=== PATIENT | female | born 1950 | race Caucasian/White ===

== ENCOUNTER 2016-04-16 22:02 | Inpatient (IN) | payer OTHER ==
[~2016-04-16] VITALS: Ht 165.1 cm; Wt 91.4 kg
--- NOTE | ~2016-04-16 | HP ---
ADMIT: 04/17/2016 RM/LOC: 310 [facility] MR#: [id number] [facility]#: [id number] [address] [address] GEORGE CHAUDHARY [address] [place] [id number] History and Physical SEX: F AGE: 65 : 1950 DATE OF SERVICE: CHIEF COMPLAINT: "I felt like I was going to pass out." HISTORY OF PRESENT ILLNESS: George is a very pleasant, 65-year-old female, normally follows with Viktoria Anglin in our clinic, history of coronary artery disease and then recently diagnosed with stage IV colon cancer status post laparoscopic right hemicolectomy on March 04, 2016, presented to the Emergency Department with the above complaints. The patient states that she was actually doing quite well in her normal state of health yesterday when acutely at about 7:30 last night. She had acute onset of feeling like she needed to go to the bathroom, along with feeling like she was going to pass out and extreme shortness of breath. She told her and they went to the Emergency Department for further evaluation. Upon evaluation there, the patient's workup revealed bilateral submassive PEs. She was started on oxygen, heparin drip, and we were asked to admit for further workup and management. She did have an elevated troponin during the workup as well. The patient seen this morning. She is doing quite well. Denies any significant chest pains or breathlessness. She denies any swelling in her legs. She noted she has had chemo x1 for her colon cancer and was due to have repeat chemo on Tuesday. She follows with Dr. Quinones for this. She denies any melenic stools. No other major complaints at this time. PAST MEDICAL HISTORY: Includes coronary artery disease, status post stent in September 2014, hypertension, hyperlipidemia, gastroesophageal reflux, colon cancer stage IV with positive liver mets. PAST SURGICAL HISTORY: 1. Status post cholecystectomy. 2. Tubal ligation. 3. Inguinal hernia repair. 4. [place] teeth removal. 5. Right hemicolectomy, February 2016. MEDICATIONS: Please refer to hospital record. ALLERGIES: SULFA. SOCIAL HISTORY: Denies alcohol, drug, or tobacco use. Patient lives with her . FAMILY HISTORY: Dad with lung cancer. Mother is in good health. REVIEW OF SYSTEMS: A 10-point review of systems obtained, per HPI otherwise negative. PHYSICAL EXAMINATION: VITAL SIGNS: Blood pressure 103/66, pulse 92, respirations 16, temperature 96.6, and 94% on 2 L oxygen. ADMIT: 04/17/2016 RM/LOC: 310 [facility] MR#: [id number] [address] [address] [place] [address] History and Physical SEX: F AGE: 65 : 1950 GENERAL: Alert and oriented x3. Does not appear to be in acute distress. HEENT: Pupils equal, round, reactive. Extraocular movements intact. HEART: Regular rate and rhythm. No murmurs, rubs, or gallops. LUNGS: Clear to auscultation bilaterally without any wheezes or crackles. ABDOMEN: Soft. Non distended. Nontender. EXTREMITIES: With trace edema, symmetric bilaterally. NEUROLOGICAL: Intact. No focal deficits. SKIN: Without any significant findings. LABORATORY DATA: From yesterday, pertinent include hemoglobin of 9.2. Potassium of 3.1. Albumin of 2.6. Glucose of 144. Troponin was 0.941. CT scan final over read is pending, but per ER bilateral submassive PEs. ASSESSMENT/PLAN: 65-year-old female with: 1. Bilateral submassive pulmonary embolisms. 2. Respiratory failure, acute with hypoxia. 3. Elevated troponin likely secondary to #1. 4. Anemia, iron deficiency. 5. Hypokalemia. 6. Malnutrition. 7. Metastatic colon cancer status post right hemicolectomy in February 2016. 8. Coronary artery disease, status post stent, September 2014. 9. Hyperlipidemia. 10.Hypertension. 11.Gastroesophageal reflux disease. PLAN: The patient is in ICU. We will continue to monitor her here today. Continue heparin drip. She seems to be doing quite well. The patient will need to be discharged on Lovenox given her history of colon cancer. We will ADMIT: 04/17/2016 RM/LOC: 310 [facility] MR#: [id number] [address] [address] [place] [address] History and Physical SEX: F AGE: 65 : 1950 likely discharge with aspirin and stop her Plavix as she will only need single anti-platelet therapy while being on full anticoagulation. We will treat her electrolytes, anemia with Venofer, and monitor her nutrition closely. I anticipate that she can likely be transitioned to Lovenox tomorrow and hopefully discharge home on Tuesday. May have to hold off on her chemo on Tuesday. Greater than 25 minutes spent in [id number] contact with the patient and her daughter. They were in agreement with the patient's care. Greater than 35 minutes spent on overall patient care. Rodolfo Toribio MD/ jose JOB #: [id number] CC: Gabriel Ramos, Attending Physician Viktoria Anglin, Family Physician Viktoria Anglin PA-C
--- NOTE | ~2016-04-16 | ECH ---
Transthoracic Echocardiography Report (TTE) Demographics Patient Name GEORGE CHAUDHARY Date of Study 04/17/2016 Patient Number [id number] Visit Number [id number] Date of 1950 Room Number 310 Accession Number [id number] Gender Female Age 65 year(s) Referring Catarino Reynolds Corporate Physical Security Supervisor Mali Abraham [facility] Physician Physician Aabd South MD Electronic Equipment Installer Physician Ralph Supervising Ordering Physician Catarino Reynolds MD/MLP Nurse Stress Head Nurse Conclusions Contractility Score Summary Normal Left Ventricular contractility was noted. Summary Technically fair exam. The estimated left ventricular ejection fraction is 65%. Moderately dilated right ventricle with moderately reduced right ventricular function. The right atrium is mildly dilated. Mild tricuspid regurgitation by color Doppler. There is mild pulmonary hypertension. The pulmonary pressure (RVSP) is 41 mmHg. Recommendation The patient will be given the results of this study by the physician who ordered the exam. Procedure Type of Study TTE procedure:Echo Complete SF. Procedure Date Date: 04/17/2016 Start: 11:21 AM Technical Quality: Fair Appropriate Use Criteria: 9 Height: 65 inches Weight: 193 pounds BSA: 1.95 m Rhythm: NSR HR: 93 bpm BP: 128/77 mmHg Allergies - Sulfa. M-Mode/2D Measurements LV Diastolic Dimension: 3.71 cm LV Systolic Dimension: 2.57 cm LV Septum Diastolic: 0.99 cm LV PW Diastolic: 0.95 cm AO Root Dimension: 2.75 cm Cardiac Output: 4.42 l/min LA Dimension: 3.11 cm Cardiac Index: 2.27 l/min*m RV Diastolic Dimension: 2.4 cm LA volume index: 15 ml/m LVOT: 2.17 cm LVOT VTI: 12.87 cm RV Base: 4.36 cm LV Stroke volume: 47.57 ml RV Mid: 3.08 cm LV Stroke volume index: 24.39 ml/m RV Length: 6.75 cm TAPSE: 1.5 cm TDI-S': 9 cm/s Doppler Measurements AV Peak Velocity: 1.2 m/s MV Peak E-Wave: 1.07 m/s AV Peak Gradient: 5.76 mmHg AV Mean Gradient: 2.99 mmHg LVOT Peak Velocity: 0.93 m/s AV Area (Continuity):2.49 cm TR Velocity:2.82 m/s Estimated PASP: 41.79 mmHg TR Gradient:31.79 mmHg Estimated RAP:10 mmHg Estimated RVSP: 42 mmHg RA Area: 21.49 cm Findings Left Ventricle The left ventricle is normal in size . Diastolic function indeterminate due to patient's arrhythmia. Right Ventricle Moderately dilated right ventricle. Moderately reduced right ventricular function. Left Atrium Normal left atrial size. Right Atrium The right atrium is mildly dilated. Mitral Valve Normal mitral valve structure and function. Aortic Valve The aortic valve is mildly sclerotic. Tricuspid Valve Normal appearing tricuspid valve. Mild tricuspid regurgitation by color Doppler. There is mild pulmonary hypertension. The pulmonary pressure (RVSP) is 41 mmHg. Pulmonic Valve The pulmonic valve is not well visualized. Pericardial Effusion No evidence of pericardial effusion. Miscellaneous Visualized portions of the aortic root and ascending aorta appear normal in size. Pleural Effusion No evidence of pleural effusion. Contractility Score LV regional wall motion:(0-Non visualized 1-Normal 2-Hypokinesis 3-Akinesis 4-Dyskinesis 5-Aneurysm) Signature
[~2016-04-16 22:02] MED LIST: ASA CHILDREN'S81 MG PO; ASPIR 8181 MG PO; BRILINTA90 MG PO; BYSTOLIC5 MG PO; CALCIUM 600 +1 EAC8 PO; CALTRATE-600 W600 MG PO; CARAFATE DPS1 GM PO; DAILY MULTIPLE1 EAC1 PO; LIPITOR DPS40 MG PO; LIPITOR80 MG PO; OMEPRAZOLE40 MG PO; PERCOCET 5 DPS1 TAB PO; PLAVIX75 MG PO; PRILOSEC DPS20 MG PO; THERA1 EACH PO; TYLENOL DPS325 MG PO; VITAMIN D2000 UNI1 PO; VITAMIN D22000 UNIT PO; ZESTRIL DPS40 MG PO; ZESTRIL40 MG PO; ZETIA10 MG PO; ZOFRAN4 MG PO
--- NOTE | 2016-04-17 04:06 | ER ---
ADMIT: 04/17/2016 RM/LOC: 310 [facility] MR#: [id number] 2620 [facility] [address] [place], [place] [address] GEORGE CHAUDHARY [address] [place] [address] Emergency Room Report SEX: F AGE: 65 : 1950 DATE: 04/16/2016 CHIEF COMPLAINT: Chest pain. HISTORY OF PRESENT ILLNESS: The patient is a 65-year-old female with recently diagnosed metastatic colon tumor pT4a lymph node pN2b, status post laparoscopic right hemicolectomy on March 05 with previous history of recent peptic ulcer bleed this summer and ST-elevated ID due to occluded right coronary artery in 2014. The patient states she was convalescing at home when she had acute onset of chest tightness radiating to both arms associated with tachypnea, shortness of breath and syncope, was evaluated by Jamie Bobby at [facility]. EKG showed sinus tachycardia, normal troponin, given nitroglycerin with improvement. Transferred to [facility] for probable PE due to elevated D-dimer and recent surgery. PAST MEDICAL HISTORY: ALLERGIES: SULFA. MEDICATIONS: Please see nurse's MAR. ILLNESSES: Coronary artery disease, status post ST-elevated ID, recent GI bleed, hypertension, hyperlipidemia, metastatic colon cancer tumor pT4a lymph node pN2b, hypo vitamin D. 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 SOCIAL HISTORY: . Occasional alcoholic beverage. Nonsmoker. No illicit drugs. FAMILY HISTORY: Positive for breast cancer. REVIEW OF SYSTEMS: A 12-point review of systems negative for all other systems, illnesses, or operations except as outlined above. PHYSICAL EXAM: VITAL SIGNS: Temp 95.2, pulse 99, respirations 18, BP 91/53, SaO2 of 85% on room air, 98% on 3 L. GENERAL: Marked distress, pale, diaphoretic without jaundice or icterus. HEENT: Normocephalic. No evidence of epistaxis, rhinorrhea, or otorrhea. NECK: Supple without lymphadenopathy or thyromegaly. CHEST: Breath sounds equal. Venous access device noted in right upper chest. HEART: Regular rate and rhythm without murmur, gallop, or edema. ABDOMEN: Soft, obese, nontender, nondistended without mass or megaly. Bowel sounds hypoactive. Well-healed incision sites. BACK: No CVA tenderness. EXTREMITIES: No evidence of Homans sign, synovitis, or dermatitis. NEURO: EOMI. PERRLA. No evidence of drift, dysarthria, or ataxia. Gait not ADMIT: 04/17/2016 RM/LOC: 310 [facility] MR#: [id number] [address] [address] [place] [address] Emergency Room Report SEX: F AGE: 65 : 1950 assessed. MENTAL STATUS: Alert, oriented, and cooperative without delusions, hallucinations, or abnormal thought content. MEDICAL DECISION MAKING: EKG on arrival showed sinus rhythm with nonspecific ST T-wave changes, relatively unchanged from March 02, 2016. Chest x-ray, no acute findings. CTA chest, did show bilateral PEs, massive metastatic lesions noted in the liver, unchanged from previous. Hemoglobin 9.2, lactic 2.7, CRP 0.48. Sodium 147, potassium 3.1, glucose 144, lipase 235, troponin 0.941. BN peptide 121. UA; 3+ protein, 70 WBCs. The patient was given IV fluid bolus, Zofran, Protonix, Dilaudid with marked improvement of pain. Full-dose heparin protocol. Discussed findings with Dr. South and Dr. Toribio. Dr. Toribio gave orders to nursing staff. Due to the patient's presentation, findings, and intervention, 120 minutes of critical care is warranted. DIAGNOSES: 1. Bilateral submassive pulmonary embolism. 2. Metastatic colon cancer, status post recent right hemicolectomy. 3. Coronary artery disease, status post ST-elevated myocardial infarction in 2015 with right coronary artery percutaneous coronary intervention stent. 4. Recent gastrointestinal bleed. RECOMMENDATION: Admit inpatient ICU for Dr. Ramos. ADMISSION/DISCHARGE CONDITION: Critical. Patient is a full code. Barry Pereira MD/ jose JOB #: [id number] CC: Gabriel Ramos MD, Attending Physician Viktoria Anglin PA-C, Family Physician MD Gabriel Robles MD Roger D Wells, PA-C Douglas Kosmicki, MD
[2016-04-20] MEDS ORDERED: SLOW-MAG64 MG PO (06:28)
[2016-04-20] MEDS ORDERED: MAALOX DPS30 ML PO (06:29)
[2016-04-20] MEDS ORDERED: FEOSOL-DPS325 MG PO (06:29)
[2016-04-20] MEDS ORDERED: LOVENOX DP100 MG/1 M SQ (06:29)
[2016-04-20] MEDS ORDERED: ASCORBIC ACID500 MG PO (06:29)
--- NOTE | 2016-04-20 21:12 | DS ---
ADMIT: 04/17/2016 RM/LOC: 427 [facility] MR#: [id number] [address] [address] GEORGE CHAUDHARY [address] [place] [address] General Discharge Summary SEX: F AGE: 65 : 1950 ADMISSION DATE: 04/17/2016 DISCHARGE DATE: 04/19/2016 FINAL DIAGNOSES: 1. Bilateral submassive pulmonary embolisms. 2. Acute respiratory failure with hypoxia. 3. Elevated troponin secondary to pulmonary embolisms. 4. Hypokalemia on admission. 5. Hypomagnesemia on admission. 6. Iron deficiency anemia likely secondary to chronic GI losses. 7. Left lower extremity deep vein thrombosis, nonocclusive. 8. Colon cancer with metastatic disease to the liver, status post right hemicolectomy, February 2016. 9. Malnutrition. 10.Current coronary artery disease, status post stents, September 2014. 11.Hyperlipidemia. 12.Hypertension. 13.Gastroesophageal reflux. 14.Obesity. CONSULTATIONS: None. PERTINENT IMAGING: CTA on admission showed extensive bilateral pulmonary emboli and widespread liver metastasis, unchanged. Bilateral venous Doppler's done on 04/17/2016, showed nonocclusive thrombosis of the distal femoral vein in left lower extremity. Echocardiogram on 04/17/2016, showed an EF of 65% with moderately dilated right ventricle with moderately reduced right ventricular function and an RVSP of 41. Right atrium dilation. PERTINENT LABS: Please refer to hospital record. On day of discharge, hemoglobin was 8.4, with a low MCV of 74.4. BMP had a potassium of 4.2, magnesium of 2.2, creatinine of 0.8. REASON FOR ADMISSION: Please refer to dictated H and P. Briefly, a very pleasant 65-year-old, unfortunate diagnosis of colon cancer with metastases, recent partial colectomy done in February, came in with complaints of feeling like she was going to pass out. She was in her normal state of health, doing fine when she all of a sudden felt this way. [place] short of breath. Was brought to the Emergency Department, where the above diagnoses were made. We were asked to admit for further workup and management. HOSPITAL COURSE: The patient was admitted to the ICU in critical care. Started on heparin drip as well as oxygen. The patient never was significantly hemodynamically unstable. She did have elevated troponin's that trended out slightly elevated, thought to be secondary to PE's. Over the next 24-48 hours, she was titrated off the heparin drip and started on subcutaneous Lovenox. The patient still was requiring oxygen, but there were no other major events and she was feeling much better by day of discharge. Electrolytes were replaced from admission and those were doing much better. ADMIT: 04/17/2016 RM/LOC: 427 [facility] MR#: [id number] [address] [address] GEORGE CHAUDHARY [address] [place] [address] General Discharge Summary SEX: F AGE: 65 : 1950 Her hemoglobin did trend down somewhat with fluids but was stable essentially with the above hemoglobin on discharge. She was given IV Venofer during the hospitalization for this and will be discharged on iron replacement as well. Dr. Quinones did do a social visit during the hospitalization and is still planning on doing second round of chemotherapy either Tuesday or Tuesday. There were no other major events during hospitalization. The patient is much improved on day of discharge. DISCHARGE MEDICATIONS: Refer to hospital record. The patient essentially is going home on her regular home medications with the addition of the followin. Lovenox 130 mg subcutaneous daily times 6-8 weeks, then likely will transition to Xarelto. 2. Slow-Mag 64 mg two tabs p.o. b.i.d. 3. Ferrous sulfate 325 mg p.o. b.i.d. 4. Ascorbic acid 500 mg p.o. daily with a.m. dose of iron. 5. Oxygen therapy likely for 1-2 weeks. Medications that we are stopping: Plavix given the fact the patient is going to be on Lovenox. We will continue single anti-platelet therapy with her aspirin. DISCHARGE INSTRUCTIONS: The patient instructed to take all medications as prescribed. Follow up with Dr. Ramos in 1 week. Continue using her oxygen. We will have a hemoglobin at followup. If she starts having significant GI blood loss, to contact us sooner or if any additional symptoms. Again, she is scheduled for chemo either Tuesday or Tuesday per Dr. Quinones. Discharge activities took approximately 35 minutes. Rodolfo Toribio MD/ jose JOB #: [id number] CC: Gabriel Ramos MD, Attending Physician Viktoria Anglin PA-C, Family Physician
== END 2016-04-19 12:00 | disposition home or self-care (01) | DRG 175 ==
LOC: ER 22:02 → 4PCU 04-17 00:18 → 3ICU 04-17 00:18 → 4PCU 04-18 14:23
PROVIDERS: ADMIT Family Medicine
DX: I26.99 Other pulmonary embolism without acute cor pulmonale (principal); J96.01 Acute respiratory failure with hypoxia; E46 Unspecified protein-calorie malnutrition; C77.9 Secondary and unspecified malignant neoplasm of lymph node, unspecified; C78.7 Secondary malignant neoplasm of liver and intrahepatic bile duct; E83.42 Hypomagnesemia; C18.9 Malignant neoplasm of colon, unspecified; I82.412 Acute embolism and thrombosis of left femoral vein; D50.9 Iron deficiency anemia, unspecified; E66.9 Obesity, unspecified; K21.9 Gastro-esophageal reflux disease without esophagitis; E87.6 Hypokalemia; R79.89 Other specified abnormal findings of blood chemistry; I25.10 Atherosclerotic heart disease of native coronary artery without angina pectoris; I10 Essential (primary) hypertension; E78.5 Hyperlipidemia, unspecified; E55.9 Vitamin D deficiency, unspecified; I25.2 Old myocardial infarction; Z95.5 Presence of coronary angioplasty implant and graft; Z68.32 Body mass index [BMI] 32.0-32.9, adult

== ENCOUNTER → 2016-06-29 | Outpatient (CLI) | payer OTHER ==
[~2016-06-29] MED LIST changes: +ASCORBIC ACID500 MG PO; +FEOSOL-DPS325 MG PO; +LOVENOX DP100 MG/1 M SQ; +MAALOX DPS30 ML PO; +SLOW-MAG64 MG PO
== END | disposition home or self-care (01) ==
LOC: RAD.S 08:39 → PTH.S 08:45
DX: C18.3 Malignant neoplasm of hepatic flexure (principal); C78.7 Secondary malignant neoplasm of liver and intrahepatic bile duct; I10 Essential (primary) hypertension